=== PATIENT | female | born 1995 | race Two or more races ===

== ENCOUNTER 2019-03-13 16:18 | Emergency (ER) | payer OTHER ==
[~2019-03-13] VITALS: Ht 160 cm; Wt 73.5 kg
[2019-03-13] MEDS ORDERED: SYNTHROID200 MCG (16:47)
== END 2019-03-14 00:02 | disposition home or self-care (01) ==
LOC: ER 16:18
DX: N83.291 Other ovarian cyst, right side (principal); Z33.1 Pregnant state, incidental